=== PATIENT | female | born 1995 | race American Indian/Alaskan Native ===

== ENCOUNTER 2020-07-16 20:54 | Inpatient (IN) | payer MEDICAID ==
--- NOTE | 2020-07-16 22:50 | History and Physical Report ---
History of Present Illness Date of examination: 07/16/20 Chief complaint: LABOR History of present illness: EDC Confirmation: 07/31/2020 Gestational Age: 12 weeks Past History : 1 Term Births: 0 Premature Births: 0 Living Children: 0 Para: 0 Mult. Births: 0 Prev : 0 Aborta: 0 Spont. Ab: 0 Ectopics: 0 Past Medical History: Reviewed history from 11/18/2016 and no changes required: Negative Past Medical History Past Surgical History: Reviewed history from 11/18/2016 and no changes required: negative Past Medical History Anesthesia Complications: negative Anemia: negative Autoimmune Disorder: negative Bleeding Disorder: negative Blood Transfusions: negative Breast Disease: negative Diabetes: negative Heart Disease: negative Hypertension: negative Hepatitis/Liver Disease: negative Kidney Disease/UTI: negative Neurologic/Epilepsy/Migraines: negative Phlebitis/Varicosities: negative Psychiatric: negative Pulmonary Disease/Asthma: negative Thyroid Disease: negative Hospitalizations: negative Surgery (Non-rn gyn): negative Abnormal PAP: negative HAL Exposure: negative Infertility: negative Uterine Anomaly: negative Uterine Surgery (not C/S): negative Other Gynecologic Problems: negative Family Hx: MF: HTN Social Hx: Patient is single Smoking History: Patient has never smoked. Infection History Hx of STD: none HIV Risk Eval: no Hepatitis B Risk Eval: low risk Personal hx. of genital herpes: no Partner hx. of genital herpes: no Rash, Viral, or Febrile illness since last LMP? no Varicella/Chicken Pox Status: No TB Risk: no Genetic History Congenital Heart Defect: Mom: no Dad: no Chelsi Disease: Mom: no Dad: no Thalassemia Mom: no Dad: no Neural Tube Defect Mom: no Dad: no Down's Syndrome Mom: no Dad: no Shawn-Sachs Mom: no Dad: no Sickle Cell Disease/Trait Mom: no Dad: no Hemophilia Mom: no Dad: no Muscular Dystrophy Mom: no Dad: no Cystic Fibrosis Mom: no Dad: no [place] Chorea Mom: no Dad: no Mental Retardation Mom: no Dad: no Fragile X Mom: no Dad: no Other Genetic/Chromosomal Disorder Mom: no Dad: no Child w/other defect Mom: no Dad: no Enviromental Exposures Enviromental Exposures Reviewed Xray Exposure: no Medication, drug, or alcohol use since LMP: no Chemical/Other Exposure: no Exposure to Cat Liter: no Hx of Parvovirus (Fifth Disease): no Occupational Exposure to Children: none Active Medications (reviewed today): PNV Current Allergies (reviewed today): No known allergies Past History - Obstetrical History Expected Date of Delivery: 07/31/20 Actual Gestation: 38 Week(s) 0 Day(s) : 1 Medications and Allergies Allergies Allergy/AdvReac Type Severity Reaction Status Date / Time No Known Allergies Allergy Verified 07/16/20 06:12 Review of Systems All systems: negative Genitourinary: contractions - Vital Signs Vital signs: Vital Signs Temp Resp 98.5 F 20 07/16/20 22:12 07/16/20 22:12 Temp Pulse Resp BP Pulse Ox 98.5 F 82 20 117/74 07/16/20 22:12 07/16/20 22:14 07/16/20 22:12 07/16/20 22:14 - Physical Exam Breasts: Positive: deferred Lungs: Positive: Normal air movement - Obstetrical FHR: category 1 Cervical Dilatation: 3.5 (per RN) Results Result Diagrams: 07/16/20 22:51 All other labs normal. Assessment and Plan - Patient Problems (1) 37 weeks gestation of Current Visit: Yes Status: Acute
[2020-07-16] MEDS ORDERED: TERBUTALINE 1 MG/1 ML INJ SUB-Q PRN (22:51)
[2020-07-16] MEDS ORDERED: LIDOCAINE (2%) 20 MG/1 ML VIAL 20 ML MDV INFILTRATI ONE (22:51)
[2020-07-16] MEDS ORDERED: CARBOPROST TROMETHAMINE 250 MCG/1 ML INJ IM PRN (22:51)
[2020-07-16] MEDS ORDERED: METHYLERGONOVINE MALEATE 0.2 MG/ML VIAL IM PRN (22:51)
[2020-07-16] MEDS ORDERED: MINERAL OIL 30 ML ORAL LIQD PO PRN (22:51)
[2020-07-16] MEDS ORDERED: LOPERAMIDE 2 MG CAP PO PRN (22:51)
[2020-07-16] MEDS ORDERED: OXYTOCIN 10 UNIT/1 ML INJ IM PRN (22:51)
[2020-07-16] MEDS ORDERED: miSOPROStol 200 MCG TAB PR PRN (22:51)
[2020-07-16] MEDS ORDERED: ePHEDrine SULFATE 50 MG/1 ML INJ IV PRN (22:51)
[2020-07-16] MEDS ORDERED: OXYTOCIN DRIP 30 UNITS/500 ML BAG IV SCH (23:00)
[2020-07-16] MEDS ORDERED: ACETAMINOPHEN 500 MG TAB PO PRN (23:06)
[2020-07-17] MEDS ORDERED: fentaNYL 100 MCG/2 ML INJ IV PRN ×2 (00:47→16:00)
[2020-07-17 00:51] LABS: Hematocrit 34.3 % (30.3-42.9); Hemoglobin 11.2 gm/dl (10.1-14.3); Mean Corpuscular HGB Conc 33 % (30-34); Mean Corpuscular Volume 84 fl (79-97); Red Blood Count 4.09 M/mm3 (3.65-5.03); Red Cell Distribution Width 14.7 % (13.2-15.2)
[2020-07-17 00:53] LABS: Platelet Count 184 K/mm3 (140-440)
[2020-07-17] MEDS: LACTATED RINGERS 1,000 ML IV SCH ×2 (01:00→06:15)
--- NOTE | 2020-07-17 03:41 | Anesthesia Consultation ---
Anesthesia Consult and Med Hx Date of service: 07/17/20 - Airway Anesthetic Teeth Evaluation: Good ROM Head & Neck: Adequate Mental/Hyoid Distance: Adequate Mallampati Class: Class II Intubation Access Assessment: Good - Pulmonary Exam CTA: Yes - Cardiac Exam Cardiac Exam: RRR - Pre-Operative Health Status ASA Pre-Surgery Classification: ASA2 Proposed Anesthetic Plan: Epidural - Pulmonary Hx Smoking: No Hx Asthma: No Hx Respiratory Symptoms: No SOB: No COPD: No Home Oxygen Therapy: No Hx Pneumonia: No Hx Sleep Apnea: No - Cardiovascular System Hx Hypertension: No Hx Coronary Artery Disease: No Hx Heart Attack/AMI: No Hx Angina: No Hx Percutaneous Transluminal Coronary Angioplasty (PTCA): No Hx Cardia Arrhythmia: No Hx Pacemaker: No Hx Internal Defibrillator: No Hx Valvular Heart Disease: No Hx Heart Murmur: No Hx Peripheral Vascular Disease: No - Central Nervous System Hx Neuromuscular Disorder: No Hx Seizures: No CVA: No Hx Back Pain: Yes Hx Psychiatric Problems: No - Gastrointestinal Hx Ulcer: No Hx Gastroesophageal Reflux Disease: Yes - Endocrine Hx Renal Disease: No Hx End Stage Renal Disease: No Hx Cirrhosis: No Hx Liver Disease: No Hx Insulin Dependent Diabetes: No Hx Non-Insulin Dependent Diabetes: No Hx Thyroid Disease: No Hx Hypothyroidism: No Hx Hyperthyroidism: No - Hematic Hx Anemia: No Hx Sickle Cell Disease: No - Other Systems Hx Alcohol Use: No Hx Substance Use: No Hx Cancer: No Hx Obesity: No
[2020-07-17] MEDS ORDERED: NALOXONE 2 MG/2 ML INJ IV PRN (03:42)
[2020-07-17] MEDS ORDERED: ePHEDrine SULFATE 50 MG/1 ML INJ IV PRN (03:42)
--- NOTE | 2020-07-17 03:42 | Progress Note ---
Labor Epidural - Labor Epidural Start Time: 03:12 Stop Time: 03:20 Performed by:: SHARON QUINTERO Procedure: Patient is requesting a laboring epidural for laboring pain. Patient IDed, H&P reviewed, all questions and concerns were answered, and consent was signed. Timeout was performed at bedside. Patient in sitting position. Sterile prep and drape was performed. [3] ml of 1% lidocaine skin wheal at L[3]- L [4]. 18- gauge Tuohy epidural needle was advanced to loss of resistance with saline technique 6cm. Negative CSF negative blood. Epidural catheter advanced to [10] centimeters. [NEGATIVE] Aspiration [NEGATIVE] test dose. Sterile dressing applied. Patient tolerated procedure.
[2020-07-17] MEDS: fentaNYL-BUPIV 2 MCG/ML-0.125% 200 MCG/100 ML BAG EPIDURAL SCH ×2 (04:06→12:58)
--- NOTE | 2020-07-17 05:57 | Progress Note ---
Assessment and Plan Will start pitocin per protocol. Pt comfortable with epidural. Anticipate delivery. Subjective - Subjective Date of service: 07/17/20 (sleeping) Principal diagnosis: IUP @ 38w0d in labor; epidural in place. Patient reports: movement normal Objective - Vital Signs Vital Signs: Vital Signs - 12hr 07/16/20 07/16/20 07/17/20 22:12 22:14 00:26 Temperature 98.5 F Pulse Rate 82 78 Respiratory 20 Rate Blood Pressure 117/74 123/74 O2 Sat by Pulse Oximetry 07/17/20 07/17/20 07/17/20 01:02 03:00 03:05 Temperature Pulse Rate 87 95 H Respiratory 16 Rate Blood Pressure O2 Sat by Pulse 99 100 Oximetry 07/17/20 07/17/20 07/17/20 03:10 03:11 03:12 Temperature Pulse Rate 87 90 94 H Respiratory Rate Blood Pressure 139/87 140/91 O2 Sat by Pulse 99 Oximetry 07/17/20 07/17/20 07/17/20 03:14 03:15 03:17 Temperature Pulse Rate 88 92 H 96 H Respiratory Rate Blood Pressure 134/85 148/85 O2 Sat by Pulse 99 Oximetry 07/17/20 07/17/20 07/17/20 03:18 03:20 03:22 Temperature Pulse Rate 95 H 81 96 H Respiratory Rate Blood Pressure 145/84 140/82 151/86 O2 Sat by Pulse 100 Oximetry 07/17/20 07/17/20 07/17/20 03:25 03:27 03:28 Temperature Pulse Rate 85 83 94 H Respiratory Rate Blood Pressure 138/77 127/74 132/84 O2 Sat by Pulse 100 Oximetry 07/17/20 07/17/20 07/17/20 03:30 03:31 03:32 Temperature Pulse Rate 70 73 77 Respiratory Rate Blood Pressure 134/79 130/82 O2 Sat by Pulse 99 Oximetry 07/17/20 07/17/20 07/17/20 03:34 03:35 03:36 Temperature Pulse Rate 77 77 76 Respiratory Rate Blood Pressure 126/80 130/82 O2 Sat by Pulse 99 Oximetry 07/17/20 07/17/20 07/17/20 03:38 03:40 03:45 Temperature Pulse Rate 82 90 87 Respiratory Rate Blood Pressure 122/76 O2 Sat by Pulse 97 97 Oximetry 07/17/20 07/17/20 07/17/20 03:50 03:55 04:00 Temperature Pulse Rate 77 72 88 Respiratory Rate Blood Pressure O2 Sat by Pulse 97 97 97 Oximetry 07/17/20 07/17/20 07/17/20 04:05 04:09 04:10 Temperature Pulse Rate 78 93 H 84 Respiratory Rate Blood Pressure 110/72 O2 Sat by Pulse 98 99 Oximetry 07/17/20 07/17/20 07/17/20 04:15 04:20 04:25 Temperature Pulse Rate 87 75 79 Respiratory Rate Blood Pressure O2 Sat by Pulse 98 99 97 Oximetry 07/17/20 07/17/20 07/17/20 04:30 04:35 04:39 Temperature Pulse Rate 72 84 74 Respiratory Rate Blood Pressure 113/74 O2 Sat by Pulse 97 97 Oximetry 07/17/20 07/17/20 07/17/20 04:40 04:45 04:50 Temperature Pulse Rate 76 75 86 Respiratory Rate Blood Pressure O2 Sat by Pulse 96 96 96 Oximetry 07/17/20 07/17/20 07/17/20 04:55 05:00 05:05 Temperature Pulse Rate 82 76 85 Respiratory Rate Blood Pressure O2 Sat by Pulse 96 97 96 Oximetry 07/17/20 07/17/20 07/17/20 05:10 05:15 05:20 Temperature Pulse Rate 69 85 65 Respiratory Rate Blood Pressure 112/69 O2 Sat by Pulse 97 96 96 Oximetry 07/17/20 07/17/20 07/17/20 05:25 05:30 05:35 Temperature Pulse Rate 82 69 69 Respiratory Rate Blood Pressure O2 Sat by Pulse 97 98 97 Oximetry 07/17/20 07/17/20 07/17/20 05:39 05:40 05:45 Temperature Pulse Rate 81 93 H 65 Respiratory Rate Blood Pressure 93/52 O2 Sat by Pulse 99 98 Oximetry 07/17/20 05:50 Temperature Pulse Rate 73 Respiratory Rate Blood Pressure O2 Sat by Pulse 97 Oximetry - Exam Breasts: deferred Cardiovascular: Regular rate Lungs: Normal air movement Abdomen: Present: normal appearance, soft. Absent: distention, tenderness Uterus: Present: normal FHR: auscultation normal, category 1 Uterine Contraction Monitor Mode: External Cervical Dilatation: 5 (BBOW) Cervical Effacement Percentage: 100 station: -1 Uterine Contraction Pattern: Regular Uterine Tone Measurement Phase: Contraction Uterine Contraction Intensity: Moderate Extremities: normal Deep Tendon Reflex Grade: Normal +2 - Labs Labs: Abnormal Labs 07/16/20 22:51 MCH 27 L Laboratory Results - last 24 hr 07/16/20 07/16/20 07/17/20 22:51 22:51 02:36 WBC 9.7 RBC 4.09 Hgb 11.2 Hct 34.3 MCV 84 MCH 27 L MCHC 33 RDW 14.7 Plt Count 184 Syphilis IgG Antibody Nonreactive Blood Type O POSITIVE Antibody Screen Negative
[2020-07-17] MEDS ORDERED: OXYTOCIN DRIP 30 UNITS/500 ML BAG IV SCH (06:00)
--- NOTE | 2020-07-17 12:28 | Progress Note ---
Assessment and Plan Will continue to monitor output. SVE 8,100,-1 Prominent lip noted @ 10 o'clock position. Freq position chges Anticipate del Subjective - Subjective Date of service: 07/17/20 (comfortable with epidural) Principal diagnosis: IUP @ 38w0d in labor; epidural in place. Patient reports: movement normal Objective - Vital Signs Vital Signs: Vital Signs - 12hr 07/17/20 07/17/20 07/17/20 00:26 00:30 01:02 Temperature 98.1 F Pulse Rate 78 78 Respiratory 16 16 Rate Blood Pressure 123/74 Blood Pressure 123/74 [Right] O2 Sat by Pulse Oximetry 07/17/20 07/17/20 07/17/20 03:00 03:05 03:10 Temperature Pulse Rate 87 95 H 87 Respiratory Rate Blood Pressure Blood Pressure [Right] O2 Sat by Pulse 99 100 99 Oximetry 07/17/20 07/17/20 07/17/20 03:11 03:12 03:14 Temperature Pulse Rate 90 94 H 88 Respiratory Rate Blood Pressure 139/87 140/91 134/85 Blood Pressure [Right] O2 Sat by Pulse Oximetry 07/17/20 07/17/20 07/17/20 03:15 03:17 03:18 Temperature Pulse Rate 92 H 96 H 95 H Respiratory Rate Blood Pressure 148/85 145/84 Blood Pressure [Right] O2 Sat by Pulse 99 Oximetry 07/17/20 07/17/20 07/17/20 03:20 03:22 03:25 Temperature Pulse Rate 81 96 H 85 Respiratory Rate Blood Pressure 140/82 151/86 138/77 Blood Pressure [Right] O2 Sat by Pulse 100 100 Oximetry 07/17/20 07/17/20 07/17/20 03:27 03:28 03:30 Temperature Pulse Rate 83 94 H 70 Respiratory Rate Blood Pressure 127/74 132/84 Blood Pressure [Right] O2 Sat by Pulse 99 Oximetry 07/17/20 07/17/20 07/17/20 03:31 03:32 03:34 Temperature Pulse Rate 73 77 77 Respiratory Rate Blood Pressure 134/79 130/82 126/80 Blood Pressure [Right] O2 Sat by Pulse Oximetry 07/17/20 07/17/20 07/17/20 03:35 03:36 03:38 Temperature Pulse Rate 77 76 82 Respiratory Rate Blood Pressure 130/82 122/76 Blood Pressure [Right] O2 Sat by Pulse 99 Oximetry 07/17/20 07/17/20 07/17/20 03:40 03:45 03:50 Temperature Pulse Rate 90 87 77 Respiratory Rate Blood Pressure Blood Pressure [Right] O2 Sat by Pulse 97 97 97 Oximetry 07/17/20 07/17/20 07/17/20 03:55 04:00 04:05 Temperature Pulse Rate 72 88 78 Respiratory Rate Blood Pressure Blood Pressure [Right] O2 Sat by Pulse 97 97 98 Oximetry 07/17/20 07/17/20 07/17/20 04:09 04:10 04:15 Temperature Pulse Rate 93 H 84 87 Respiratory Rate Blood Pressure 110/72 Blood Pressure [Right] O2 Sat by Pulse 99 98 Oximetry 07/17/20 07/17/20 07/17/20 04:20 04:25 04:30 Temperature Pulse Rate 75 79 72 Respiratory Rate Blood Pressure Blood Pressure [Right] O2 Sat by Pulse 99 97 97 Oximetry 07/17/20 07/17/20 07/17/20 04:35 04:39 04:40 Temperature Pulse Rate 84 74 76 Respiratory Rate Blood Pressure 113/74 Blood Pressure [Right] O2 Sat by Pulse 97 96 Oximetry 07/17/20 07/17/20 07/17/20 04:45 04:50 04:55 Temperature Pulse Rate 75 86 82 Respiratory Rate Blood Pressure Blood Pressure [Right] O2 Sat by Pulse 96 96 96 Oximetry 07/17/20 07/17/20 07/17/20 05:00 05:05 05:10 Temperature Pulse Rate 76 85 69 Respiratory Rate Blood Pressure 112/69 Blood Pressure [Right] O2 Sat by Pulse 97 96 97 Oximetry 07/17/20 07/17/20 07/17/20 05:15 05:20 05:25 Temperature Pulse Rate 85 65 82 Respiratory Rate Blood Pressure Blood Pressure [Right] O2 Sat by Pulse 96 96 97 Oximetry 07/17/20 07/17/20 07/17/20 05:30 05:35 05:39 Temperature Pulse Rate 69 69 81 Respiratory Rate Blood Pressure 93/52 Blood Pressure [Right] O2 Sat by Pulse 98 97 Oximetry 07/17/20 07/17/20 07/17/20 05:40 05:45 05:50 Temperature Pulse Rate 93 H 65 73 Respiratory Rate Blood Pressure Blood Pressure [Right] O2 Sat by Pulse 99 98 97 Oximetry 07/17/20 07/17/20 07/17/20 05:55 06:00 06:05 Temperature Pulse Rate 74 68 66 Respiratory Rate Blood Pressure Blood Pressure [Right] O2 Sat by Pulse 97 98 98 Oximetry 07/17/20 07/17/20 07/17/20 06:10 06:15 06:20 Temperature Pulse Rate 84 68 72 Respiratory Rate Blood Pressure 98/61 Blood Pressure [Right] O2 Sat by Pulse 99 98 98 Oximetry 07/17/20 07/17/20 07/17/20 06:25 06:30 06:35 Temperature Pulse Rate 70 70 70 Respiratory Rate Blood Pressure Blood Pressure [Right] O2 Sat by Pulse 97 97 99 Oximetry 07/17/20 07/17/20 07/17/20 06:39 06:40 06:45 Temperature Pulse Rate 67 70 73 Respiratory Rate Blood Pressure 108/70 Blood Pressure [Right] O2 Sat by Pulse 98 98 Oximetry 07/17/20 07/17/20 07/17/20 06:50 06:55 07:00 Temperature Pulse Rate 76 77 73 Respiratory Rate Blood Pressure Blood Pressure [Right] O2 Sat by Pulse 97 98 98 Oximetry 07/17/20 07/17/20 07/17/20 07:05 07:09 07:10 Temperature Pulse Rate 83 71 68 Respiratory Rate Blood Pressure 114/71 Blood Pressure [Right] O2 Sat by Pulse 97 98 Oximetry 07/17/20 07/17/20 07/17/20 07:15 07:20 07:25 Temperature Pulse Rate 71 72 76 Respiratory Rate Blood Pressure Blood Pressure [Right] O2 Sat by Pulse 98 97 96 Oximetry 07/17/20 07/17/20 07/17/20 07:30 07:35 07:39 Temperature Pulse Rate 66 79 63 Respiratory Rate Blood Pressure 113/75 Blood Pressure [Right] O2 Sat by Pulse 98 97 Oximetry 07/17/20 07/17/20 07/17/20 07:40 07:45 07:50 Temperature Pulse Rate 65 63 72 Respiratory Rate Blood Pressure Blood Pressure [Right] O2 Sat by Pulse 98 98 98 Oximetry 07/17/20 07/17/20 07/17/20 07:55 08:00 08:05 Temperature Pulse Rate 71 68 67 Respiratory Rate Blood Pressure Blood Pressure [Right] O2 Sat by Pulse 98 99 98 Oximetry 07/17/20 07/17/2007/17/21 08:10 08:11 08:15 Temperature Pulse Rate 71 77 7 L Respiratory 14 Rate Blood Pressure 114/74 Blood Pressure 114/74 [Right] O2 Sat by Pulse 99 99 Oximetry 07/17/20 07/17/20 07/17/20 08:20 08:25 08:30 Temperature Pulse Rate 70 75 73 Respiratory 15 Rate Blood Pressure Blood Pressure 130/81 [Right] O2 Sat by Pulse 100 100 100 Oximetry 07/17/20 07/17/20 07/17/20 08:34 08:35 08:40 Temperature Pulse Rate 64 73 68 Respiratory Rate Blood Pressure 130/81 Blood Pressure [Right] O2 Sat by Pulse 100 100 Oximetry 07/17/20 07/17/20 07/17/20 08:45 08:49 08:50 Temperature Pulse Rate 64 64 75 Respiratory 16 Rate Blood Pressure 120/81 Blood Pressure 120/81 [Right] O2 Sat by Pulse 99 99 Oximetry 07/17/20 07/17/20 07/17/20 08:55 09:00 09:04 Temperature Pulse Rate 82 67 59 L Respiratory 15 Rate Blood Pressure 119/77 Blood Pressure 119/77 [Right] O2 Sat by Pulse 100 99 Oximetry 07/17/20 07/17/20 07/17/20 09:05 09:09 09:10 Temperature Pulse Rate 67 80 85 Respiratory Rate Blood Pressure Blood Pressure [Right] O2 Sat by Pulse 99 94 100 Oximetry 07/17/20 07/17/20 07/17/20 09:15 09:20 09:25 Temperature Pulse Rate 68 70 67 Respiratory 14 Rate Blood Pressure 117/71 Blood Pressure 117/71 [Right] O2 Sat by Pulse 100 100 100 Oximetry 07/17/20 07/17/20 07/17/20 09:30 09:34 09:35 Temperature Pulse Rate 66 56 L 66 Respiratory 15 Rate Blood Pressure 122/79 Blood Pressure 122/79 [Right] O2 Sat by Pulse 100 100 Oximetry 07/17/20 07/17/20 07/17/20 09:40 09:45 09:49 Temperature Pulse Rate 75 73 71 Respiratory Rate Blood Pressure 123/83 Blood Pressure [Right] O2 Sat by Pulse 99 100 Oximetry 07/17/20 07/17/20 07/17/20 09:50 09:51 09:55 Temperature Pulse Rate 70 70 96 H Respiratory Rate Blood Pressure Blood Pressure [Right] O2 Sat by Pulse 99 89 98 Oximetry 07/17/20 07/17/20 07/17/20 10:00 10:04 10:05 Temperature Pulse Rate 89 77 85 Respiratory Rate Blood Pressure 132/77 Blood Pressure [Right] O2 Sat by Pulse 100 100 Oximetry 07/17/20 07/17/20 07/17/20 10:10 10:15 10:19 Temperature Pulse Rate 76 79 81 Respiratory Rate Blood Pressure 123/79 Blood Pressure [Right] O2 Sat by Pulse 100 100 Oximetry 07/17/20 07/17/20 07/17/20 10:20 10:25 10:30 Temperature Pulse Rate 87 77 85 Respiratory Rate Blood Pressure Blood Pressure [Right] O2 Sat by Pulse 100 98 99 Oximetry 07/17/20 07/17/20 07/17/20 10:33 10:35 10:40 Temperature Pulse Rate 73 76 79 Respiratory Rate Blood Pressure 129/88 Blood Pressure [Right] O2 Sat by Pulse 100 100 Oximetry 07/17/20 07/17/20 07/17/20 10:45 10:50 10:55 Temperature Pulse Rate 78 67 71 Respiratory Rate Blood Pressure 114/72 Blood Pressure [Right] O2 Sat by Pulse 100 100 99 Oximetry 07/17/20 07/17/20 07/17/20 11:00 11:04 11:05 Temperature Pulse Rate 72 72 72 Respiratory Rate Blood Pressure 110/67 Blood Pressure [Right] O2 Sat by Pulse 99 99 Oximetry 07/17/20 07/17/20 07/17/20 11:10 11:15 11:18 Temperature Pulse Rate 81 72 78 Respiratory Rate Blood Pressure 105/67 Blood Pressure [Right] O2 Sat by Pulse 99 99 Oximetry 07/17/20 07/17/20 07/17/20 11:20 11:25 11:30 Temperature Pulse Rate 81 89 89 Respiratory Rate Blood Pressure Blood Pressure [Right] O2 Sat by Pulse 99 100 100 Oximetry 07/17/20 07/17/20 07/17/20 11:34 11:35 11:39 Temperature Pulse Rate 82 75 85 Respiratory Rate Blood Pressure 147/83 141/81 Blood Pressure [Right] O2 Sat by Pulse 100 Oximetry 07/17/20 07/17/20 07/17/20 11:40 11:41 11:45 Temperature Pulse Rate 81 88 91 H Respiratory Rate Blood Pressure 141/88 130/83 Blood Pressure [Right] O2 Sat by Pulse 100 99 Oximetry 07/17/20 07/17/20 07/17/20 11:48 11:50 11:55 Temperature Pulse Rate 80 85 93 H Respiratory Rate Blood Pressure 132/84 Blood Pressure [Right] O2 Sat by Pulse 100 100 Oximetry 07/17/20 07/17/20 07/17/20 12:00 12:05 12:10 Temperature Pulse Rate 91 H 91 H 95 H Respiratory Rate Blood Pressure 124/84 Blood Pressure [Right] O2 Sat by Pulse 100 100 100 Oximetry 07/17/20 07/17/20 07/17/20 12:15 12:19 12:20 Temperature Pulse Rate 76 89 77 Respiratory Rate Blood Pressure 144/78 Blood Pressure [Right] O2 Sat by Pulse 99 100 Oximetry - Exam Breasts: deferred Cardiovascular: Regular rate Lungs: Normal air movement Abdomen: Present: normal appearance, soft. Absent: distention, tenderness Uterus: Present: normal FHR: auscultation normal, category 1 Uterine Contraction Monitor Mode: External Cervical Dilatation: 8.5 (ROM clear) Cervical Effacement Percentage: 100 station: -1 Uterine Contraction Pattern: Regular Uterine Tone Measurement Phase: Resting Uterine Contraction Intensity: Moderate Extremities: normal Deep Tendon Reflex Grade: Normal +2 - Labs Labs: Abnormal Labs 07/16/20 22:51 MCH 27 L Laboratory Results - last 24 hr 07/16/20 07/16/20 07/17/20 22:51 22:51 02:36 WBC 9.7 RBC 4.09 Hgb 11.2 Hct 34.3 MCV 84 MCH 27 L MCHC 33 RDW 14.7 Plt Count 184 Syphilis IgG Antibody Nonreactive Blood Type O POSITIVE Antibody Screen Negative
--- NOTE | 2020-07-17 17:23 | Procedure Note ---
OB Delivery Note - Delivery Date of Delivery: 07/17/20 [employer] Setter: SIMRAN PHILLIPS Estimated blood loss: 300cc - Vaginal Delivery presentation: vertex Delivery position: OA Intrapartum events: none Delivery augmentation: pitocin Delivery monitor: external FHT, external uterine Route of delivery: Delivery placenta: spontaneous Delivery cord: 3 umbilical vessels Episiotomy: none Delivery laceration: none Anesthesia: epidural Delivery comments: EMILIANO present Count correct X 2 live born female over intact perineum Baby to mom's abdomen skin to skin Cord blood obtained Placenta and membrane delivered complete and intact 3 vessel cord Pitocin IVFs 8/9, EBL 300, wgt Mom and baby remain LDR stable - Infant A at 1 minute: 8 (wgt 7-9 Maesyn) at 5 minutes: 9 Gender: Female (wgt)
[2020-07-17] MEDS ORDERED: ACETAMINOPHEN 325 MG TAB PO PRN (17:24)
[2020-07-17] MEDS ORDERED: MAGNESIUM HYDROXIDE (MOM) ORAL LIQD UDC PO PRN (17:24)
[2020-07-17] MEDS ORDERED: diphenhydrAMINE 25 MG CAP PO PRN (17:24)
[2020-07-17] MEDS ORDERED: LANOLIN/ZINC/DIMETHICONE (LANSINOH) 7 GM TP PRN (17:24)
[2020-07-17] MEDS ORDERED: PROMETHAZINE 25 MG TAB PO PRN (17:24)
[2020-07-17] MEDS ORDERED: ONDANSETRON 4 MG/2 ML INJ IV PRN (17:24)
[2020-07-17] MEDS ORDERED: WITCH HAZEL/ GLYCERIN PAD TP PRN (17:24)
[2020-07-18] MEDS: DOCUSATE SODIUM 100 MG CAP PO SCH ×2 (00:04→11:36)
[2020-07-18] MEDS: IBUPROFEN 600 MG TAB PO SCH ×2 (00:05→05:58)
[2020-07-18 05:59] LABS: Hematocrit 29.4 % (30.3-42.9); Hemoglobin 9.5 gm/dl (10.1-14.3)
[2020-07-18] MEDS ORDERED: MEASLES, MUMPS & RUBELLA 12,500 UNIT/0.5 ML VACCINE SUB-Q ONE (06:00)
[2020-07-18] MEDS ORDERED: TETANUS,DIPH,PERTUSS(ACELL) VACCINE 0.5 ML SYRINGE IM ONE (06:00)
[2020-07-18] MEDS ORDERED: IBUPROFEN 600 MG TAB PO SCH (08:42)
[2020-07-18] MEDS ORDERED: ACETAMINOPHEN 325 MG TAB PO PRN (08:42)
--- NOTE | 2020-07-18 08:52 | Discharge Summary ---
Providers - Providers Date of Admission: 07/17/20 00:30 Date of discharge: 07/18/20 Attending physician: ROLANDO VELOZ Primary care physician: ROLANDO VELOZ Hospitalization Reason for admission: active labor Delivery: Episiotomy: none Laceration: none Other procedures: none complications: none Discharge diagnosis: IUP at term delivered [place] baby: female Hospital course: S: Pt doing well. Passing flatus, ambulating, and voiding without difficulty. BC: Undecided. O: VSS. Fundus firm, minimal bleeding noted. H/H 9.5/29.4, asymptomatic anemia of delivery. A: 25 y.o. s/p @ term, in good condition and can be discharged home. P: Discharge home with instructions. Pt to schedule a visit in the office in 4 weeks. Condition at discharge: Good Disposition: DC-01 TO HOME OR SELFCARE Plan - Discharge Medications Prescriptions: Docusate Sodium [Colace] 100 mg PO BID PRN #60 capsule PRN Reason: Constipation Ferrous Sulfate [Feosol 325 MG tab] 325 mg PO QDAY #30 tablet Ibuprofen [Motrin] 800 mg PO Q8HR PRN #30 tablet PRN Reason: Pain, Moderate (4-6) - Provider Discharge Summary Activity: routine, no sex for 6 weeks, no heavy lifting 4 weeks, no strenuous exercise Diet: routine Instructions: routine Additional instructions: [] Smoking cessation referral if applicable(refer to patient education folder for contact #) [] Refer to [facility]'s [facility] Booklet Call your doctor immediately for: * Fever > 100.5 * Heavy vaginal bleeding ( >1 pad per hour) * Severe persistent headache * Shortness of breath * Reddened, hot, painful area to leg or breast * Drainage or odor from incision. * Keep incision clean and dry at all times and follow doctor's instructions regarding bathing/showering Congratulations on your baby girl!! Please take iron supplement once a day for 1 month. Please schedule a appointment in the office in 4 weeks. If you have any questions or concerns after discharge, please do not hesitate to call the office at [phone]. - Follow up plan Follow up: ROLANDO VELOZ MD [Primary Care Provider] - 7 Days
[2020-07-18] MEDS ORDERED: ACETAMINOPHEN 500 MG TAB PO PRN ×2 (09:30→10:00)
[2020-07-18] MEDS ORDERED: IBUPROFEN 800 MG TAB PO SCH (10:00)
[2020-07-18] MEDS ORDERED: PRENATAL VIT27-FE FUMARATE-FOLIC ACID VIT TAB PO SCH (10:00)
--- NOTE | 2020-07-18 10:38 | Post Anesthesia Evaluation ---
- Post Anesthesia Evaluation Patient Participated: Yes Airway Patent: Yes Stable Respiratory Function: Yes Nausea/Vomiting: No Temp > 96.8F: Yes Pain Manageable: Yes Adequeate Hydration: Yes Anesthesia Complications: No Block Receding Appropriately: Yes Patient on Ventilator: No
[2020-07-18 18:56] VITALS: BP 111/77
== END 2020-07-18 21:45 | disposition home or self-care (01) | DRG 775 ==
LOC: TRG 20:54 → APU 20:55 → TRG 07-17 00:30 → LD 07-17 00:30 → OB 07-17 21:39
PROVIDERS: ADMIT Obstetrics & Gynecology; ATTEND Obstetrics & Gynecology
PROC: 10E0XZZ Delivery of Products of Conception, External Approach (ICD-10-PCS; principal; 2020-07-17)
PROC: 3E0R3BZ Introduction of Anesthetic Agent into Spinal Canal, Percutaneous Approach (ICD-10-PCS; 2020-07-17)
PROC: 00HU33Z Insertion of Infusion Device into Spinal Canal, Percutaneous Approach (ICD-10-PCS; 2020-07-17)
DX: O80 Encounter for full-term uncomplicated delivery (principal); Z20.822 Contact with and (suspected) exposure to COVID-19; Z3A.38 38 weeks gestation of pregnancy; Z37.0 Single live birth
CPT/HCPCS: 36415; 59025; 85014; 85018; 85027; 86592; 86850; 86900; 86901; 96361; 96367; 96372; 96374; G0378; A6250; J2590; J3010; J3410; J7120; U0003